=== PATIENT | female | born 1975 | race Caucasian/White ===

== ENCOUNTER 2017-09-06 14:22 | Emergency (ER) | payer MEDICAID ==
[~2017-09-06] VITALS: Ht 165.1 cm; Wt 61.2 kg
--- NOTE | 2017-09-06 14:22 | NUR ---
Patient was BIBA and taken to bed 07 via gurney per EMS.
[2017-09-06 14:36] VITALS: BP 140/71
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
--- NOTE | 2017-09-06 15:05 | NUR ---
Dr. Rico evaluating patient at bedside.
--- NOTE | 2017-09-06 15:20 | NUR ---
[facility] AT BEDSIDE.
[2017-09-06] MEDS ORDERED: KETOROLAC 60 MG/2 ML VIAL IM ONE (16:10)
[2017-09-06] MEDS ORDERED: oxyCODONE/APAP 5/325 MG 1 TAB TAB PO ONE (16:35)
[2017-09-06] MEDS ORDERED: DIAZEPAM 5 MG TAB PO ONE (18:20)
--- NOTE | 2017-09-06 18:30 | NUR ---
Patient was taken to CT via [place].
--- NOTE | 2017-09-06 18:46 | NUR ---
Patient back from CT via gurney.
--- NOTE | 2017-09-06 19:09 | NUR ---
Pt report given to EDWINA. Transfer of care at this time.
--- NOTE | 2017-09-06 19:18 | NUR ---
Dr. Bhakta re-evaluating patient at bedside.
[2017-09-06 19:46] VITALS: BP 126/69
--- NOTE | 2017-09-06 19:50 | NUR ---
Patient discharged with v/s stable. Written and verbal after care instructions given and explained. Patient alert, oriented and verbalized understanding of instructions. Ambulatory with steady gait. All questions addressed prior to discharge. ID band removed. Patient advised to follow up with PMD. Rx of NAPROXEN 500MG AND FLEXERIL 5MG given. Patient educated on indication of medication including possible reaction and side effects. Opportunity to ask questions provided and answered.
== END 2017-09-06 19:46 | disposition home or self-care (01) ==
LOC: MED 14:22
DX: S16.1XXA Strain of muscle, fascia and tendon at neck level, initial encounter (principal); M25.512 Pain in left shoulder; R10.9 Unspecified abdominal pain; Z88.0 Allergy status to penicillin; V43.52XA Car driver injured in collision with other type car in traffic accident, initial encounter; Y93.I9 Activity, other involving external motion; Y92.488 Other paved roadways as the place of occurrence of the external cause; Y99.8 Other external cause status
CPT/HCPCS: 70450; 72125; 72128; 72131; 81002; 96372; 99284; J1885